=== PATIENT | female | born 1940 | race Caucasian/White ===

== ENCOUNTER → 2018-02-26 | Outpatient (CLI) | payer MEDICARE ==
[~2018-02-26] MED LIST: PREMARIN PO
[2018-02-26 12:07] LABS: BASOPHILS # (AUTO) 0.03 x10^3/uL (0-0.1); BASOPHILS % (AUTO) 0 % (0-1); EOSINOPHILS # (AUTO) 0.12 x10^3/uL (0-0.4); EOSINOPHILS % (AUTO) 1 % (1-7); LYMPHOCYTES # (AUTO) 2.09 x10^3/uL (1-3.4); LYMPHOCYTES % (AUTO) 24 % (22-44); MD NO; MEAN CORPUSCULAR HEMOGLOBIN 31.5 pg (27.0-34.8); MEAN CORPUSCULAR HGB CONC 33.4 g/dL (32.4-35.8); MEAN CORPUSCULAR VOLUME 94.3 fL (80-100); MEAN PLATELET VOLUME 7.5 fL (7.4-10.4); MONOCYTES # (AUTO) 0.67 x10^3/uL (0.2-0.8); MONOCYTES % (AUTO) 8 % (2-9); NEUTROPHILS # (AUTO) 5.71 x10^3/uL (1.8-6.8); NEUTROPHILS % (AUTO) 66 % (42-75); PLATELET COUNT 271 x10^3/uL (130-400); RED BLOOD COUNT 5.11 x10^6/uL (3.82-5.3); RED CELL DISTRIBUTION WIDTH 12.6 % (9.6-15.2)
[2018-02-26 12:16] LABS: ANION GAP 6 mmol/L (5-15); CHLORIDE 109 mmol/L (98-107); CREATININE 0.93 mg/dL (0.55-1.02)
== END | disposition home or self-care (01) ==
LOC: STAR 11:17
PROVIDERS: ATTEND Obstetrics & Gynecology Female Pelvic Medicine and Reconstructive Surgery
DX: Z01.818 Encounter for other preprocedural examination (principal); N81.6 Rectocele; K46.9 Unspecified abdominal hernia without obstruction or gangrene
CPT/HCPCS: 36415; 71046; 80048; 85025; 93005

== ENCOUNTER 2018-03-16 10:04 | Day surgery (SDC) | payer MEDICARE ==
[~2018-03-16] VITALS: Ht 157.5 cm; Wt 61.0 kg
[2018-03-16] MEDS ORDERED: LACTATED RINGERS 1,000 ML IV SCH ×2 (10:40→13:05)
[2018-03-16 10:44] VITALS: BP 162/113
[2018-03-16] MEDS ORDERED: FENTANYL PF 250 MCG/5ML ONE (10:48)
[2018-03-16] MEDS ORDERED: MIDAZOLAM 1 MG/ML, 2ML ONE (10:48)
[2018-03-16] MEDS ORDERED: CEFAZOLIN 1,000 MG ONE (10:49)
[2018-03-16] MEDS ORDERED: DEXAMETHASONE 4 MG/ML, 1ML ONE (10:49)
[2018-03-16] MEDS ORDERED: ROCURONIUM 10MG/ML,5ML ONE (10:49)
[2018-03-16] MEDS ORDERED: PROPOFOL 10 MG/ML, 20ML ONE ×2 (10:49→10:51)
[2018-03-16] MEDS ORDERED: ONDANSETRON 2MG/ML, 2ML ONE (10:49)
[2018-03-16] MEDS ORDERED: NEOSTIGMINE 1 MG/ML, 10ML ONE (10:49)
[2018-03-16] MEDS ORDERED: SUCCINYLCHOLINE 20 MG/ML, 10ML ONE (10:49)
[2018-03-16] MEDS ORDERED: GLYCOPYRROLATE 0.2MG/1ML, 5ML ONE (10:49)
[2018-03-16] MEDS ORDERED: LIDOCAINE-MPF 1%, 2ML INFIL ONE (11:00)
[2018-03-16] MEDS ORDERED: ACETAMINOPHEN 500 MG TABLET PO ONE (11:00)
[2018-03-16] MEDS ORDERED: GABAPENTIN 300 MG CAPSULE PO ONE (11:00)
[2018-03-16] MEDS ORDERED: ESTROGENS CONJUGATED VAG CRM 0.625MG/1G, 30GM ONE (11:39)
[2018-03-16] MEDS ORDERED: GENTAMICIN 80 MG/2 ML ONE (11:39)
[2018-03-16] MEDS ORDERED: BUPIVACAINE/PF-EPI 0.25% 1:200K ONE (11:39)
[2018-03-16] MEDS ORDERED: FLUORESCEIN SODIUM 500 MG/5 ML ONE (11:39)
[2018-03-16] MEDS ORDERED: VANCOMYCIN 500 MG ONE (11:39)
[2018-03-16] MEDS ORDERED: ONDANSETRON 2MG/ML, 2ML IV PRN (12:00)
[2018-03-16] MEDS ORDERED: PROMETHAZINE 25 MG SUPP PR PRN (12:00)
[2018-03-16] MEDS ORDERED: HYDROmorphone 1 MG/ML, 1ML IV PRN (12:00)
[2018-03-16] MEDS ORDERED: MORPHINE SULFATE 4 MG/ML, 1ML IVPush PRN (12:00)
[2018-03-16] MEDS ORDERED: FENTANYL PF 100 MCG/2ML IV PRN (12:00)
[2018-03-16] MEDS ORDERED: OXYcodone 5 MG/5 ML ORAL.SOL UDC PO PRN (12:00)
[2018-03-16] MEDS ORDERED: ONDANSETRON ODT 8 MG PO PRN (12:00)
[2018-03-16] MEDS ORDERED: MEPERIDINE/PF 25MG/0.5ML IVPush PRN (12:00)
[2018-03-16] MEDS ORDERED: LABETALOL 5MG/ML, 20ML IV PRN (12:00)
[2018-03-16] MEDS ORDERED: PROMETHAZINE 12.5 MG SUPP PR PRN (12:00)
[2018-03-16] MEDS ORDERED: hydrALAzine 20 MG/ML, 1ML IV PRN (12:00)
[2018-03-16] MEDS ORDERED: PROMETHAZINE 25 MG/ML, 1ML IM PRN ×2 (12:00)
[2018-03-16] MEDS ORDERED: PROMETHAZINE 25 MG/ML, 1ML IV PRN (12:00)
[2018-03-16] MEDS ORDERED: NEOMY/POLYMYXIN B GU IRR. 1 ML IRRIG ONE (12:16)
[2018-03-16] MEDS ORDERED: PROMETHAZINE 12.5 MG SUPP PR ONE (13:30)
[2018-03-16] MEDS ORDERED: IBUPROFEN 600 MG TABLET PO PRN (13:30)
[2018-03-16] MEDS ORDERED: ONDANSETRON 2MG/ML, 2ML IVPush PRN (13:30)
[2018-03-16] MEDS ORDERED: LABETALOL 5MG/ML, 20ML ONE (13:43)
== END 2018-03-16 17:00 | disposition home or self-care (01) ==
LOC: OUT 10:04
PROVIDERS: ATTEND Obstetrics & Gynecology Female Pelvic Medicine and Reconstructive Surgery
DX: N81.5 Vaginal enterocele (principal); N81.6 Rectocele; Z90.710 Acquired absence of both cervix and uterus; Z98.890 Other specified postprocedural states; Z72.89 Other problems related to lifestyle; Z79.899 Other long term (current) drug therapy; Z83.3 Family history of diabetes mellitus
CPT/HCPCS: 57268; J0690; J1100; J2250; J2405; J2704; J2710; J3010; J3490; J7120; J3370; J0330; J1580

== ENCOUNTER → 2019-06-10 | Outpatient (CLI) | payer MEDICARE | END | disposition home or self-care (01) | LOC: CFH 10:36 | PROVIDERS: ATTEND Internal Medicine Cardiovascular Disease | DX: I08.3 Combined rheumatic disorders of mitral, aortic and tricuspid valves (principal) | CPT/HCPCS: 78452; 93017; 93306; A9502 ==